=== PATIENT | female | born 1955 | race Caucasian/White ===

== ENCOUNTER 2022-09-29 15:13 | Emergency (ER) | payer MEDICARE, BC, SELFPAY ==
[2022-09-29] VITALS (10 sets, daily range): BP systolic 136–167; BP diastolic 89–98; PULSE 69–79; RESP 14–22; TEMP 36.5; O2SAT 92–95; BMI 36.5
--- NOTE | 2022-09-29 15:20 | DI.RAD.S_ITS ---
PROCEDURE: XR CHEST 1V INDICATIONS: chest pain TECHNIQUE: One view of the chest was acquired. COMPARISON: None. FINDINGS: Surgical changes and devices: None. Lungs and pleura: Lungs are clear. No pleural effusions or pneumothorax. Mediastinum: Mediastinal contours appear normal. Heart size is normal. Bones and chest wall: No suspicious bony lesions. Overlying soft tissues appear unremarkable. IMPRESSION: No acute cardiopulmonary disease process. Dictated by: Nicole Edmondson MD, PhD on 09/29/2022 at 15:52 Approved by: Nicole Edmondson MD, PhD on 09/29/2022 at 15:52
[2022-09-29 15:51] LABS: Add Manual Diff / Slide Review NO; Basophils Absolute Auto 100 /uL (0-100); Basophils Percent Auto 1.5 % (0-2); Eosinophils Absolute Auto 200 /uL (0-450); Eosinophils Percent Auto 3.4 % (2-4); Hematocrit 42.2 % (36-46); Hemoglobin 14.7 g/dL (12.0-16.0); Lymphocytes Absolute Auto 1800 /uL (1100-4500); Lymphocytes Percent Auto 27.7 % (25-40); Mean Corpuscular HGB Conc 34.7 % (30-36); Mean Corpuscular Hemoglobin 30.5 PG (26-34); Mean Corpuscular Volume 87.7 fL (80-100); Monocytes Absolute Auto 800 /uL (0-900); Monocytes Percent Auto 11.6 % (3-14); Neutrophils Absolute Auto 3700 /uL (1500-7000); Neutrophils Percent Auto 55.8 % (50-75); Platelet Count 199 X10^3/uL (150-400); Red Blood Cell Count 4.82 X10^6/uL (4.0-5.2); Red Cell Distribution Width 13.8 % (11.6-14.8); White Blood Cell Count 6.6 X10^3/uL (4.5-11.0)
--- NOTE | 2022-09-29 15:59 | ED_ITS ---
HPI - Dizziness General Chief Complaint: Dizziness Stated Complaint: lightheaded, dizzy,Lside of face tingly t-2 Time Seen by Provider: 09/29/22 15:29 Source: patient Mode of arrival: Ambulatory History of Present Illness HPI Narrative: Patient healthy 67-year-old female presents today with dizziness and lightheadedness. She reports that for last 2 days she is had some light tingling in the left side or face. No significant pain. No numbness tingling weakness or facial droop. No speech difficulty. She says today while driving she extremely dizzy lightheaded felt like she might pass out and needed to tie puller. Episode lasted for about 1 minute. She is able to drive herself home the drive herself to the emergency department. He says for last couple days she is been fatigued not feeling well. Denies any fevers cough nausea vomiting numbness tingling weakness or any other symptoms. There is no rash on left side of her face. No history of CVA or TIA. She reports that she does have some neck issue she had a fusion at some point. Related Data Home Medications Medication Instructions Recorded Confirmed No Known Home Medications 04/20/20 04/20/20 Allergies Allergy/AdvReac Type Severity Reaction Status Date / Time iodine Allergy Verified 09/29/22 15:18 Sulfa (Sulfonamide AdvReac Verified 09/29/22 15:18 Antibiotics) Review of Systems Review of Systems ROS Unobtainable: All systems reviewed & are unremarkable except as noted in HPI and below Patient History Medical History No active medical problems Social History Smoking Status: Never smoker Smoking Status: Never smoker Exam Initial Vital Signs Initial Vital Signs: Vital Signs Temperature 97.7 F 09/29/22 15:18 Pulse Rate 74 09/29/22 15:18 Respiratory Rate 15 09/29/22 15:18 Blood Pressure 157/98 H 09/29/22 15:18 Pulse Oximetry 93 09/29/22 15:18 Oxygen Delivery Method Room Air 09/29/22 15:18 GENERAL: Alert pleasant 67-year-old female and in no acute distress. HEENT: Head atraumatic,EOMI, pupils reactive, face symmetric, moist mucous membranes CARDIOVASCULAR: Regular rate and rhythm without murmurs, rubs or gallops. RESPIRATORY: Breath sounds equal bilaterally, no wheezes rales or rhonchi. ABDOMEN: Soft, nontender. Normoactive bowel sounds all 4 quadrants. No guarding or rebound. EXTREMITIES: Normal range of motion, no clubbing or edema. Neurovascularly intact NEUROLOGICAL: Alert and oriented x4.Normal gait and speech. Cranial nerves II through XII grossly intact. Good [id number], good [id number], strength equal bilaterally, no dysarthria or aphasia, sensation in tact to soft touch bilaterally, no visual changes, no facial droop SKIN: Warm, dry, no laceration, no petechiae, no rashes or lesions. Scores NIH Stroke Scale Level of Conciousness: Alert, keenly responsive Ask month/age: Answers both questions correctly. Open/close eyes, close hand: Performs both tasks correctly Best gaze horizontal: Normal Visual carter: No visual loss Facial palsy: Normal symetrical movement Left arm drift: No drift for full 10 sec Right arm drift: No drift for full 10 sec Left leg drift: No drift for full 5 sec Right leg drift: No drift for full 5 sec Limb ataxia: Absent Sensory on face/arms/legs: Normal, no sensory loss Best language: No aphasia, normal Dysarthria: Normal Extinction or inattention: No abnormality Total NIH Stroke scale score: 0 Course Orders Ordered: ED Orders 09/29/22 15:20 XR chest 1V Stat EKG-12 Lead Stat 09/29/22 15:40 Complete Blood Count AUTO DIFF Stat Comprehensive Metabolic Panel Stat Lipase Stat Magnesium Stat PTT Partial Thromboplastin Kee Stat Prothrombin Time INR Stat Troponin & CK Cardiac Panel Stat 09/29/22 16:00 CT angio head and neck Stat 09/29/22 17:10 Covid-19 + FLU A/B + RSV - PCR Stat Discontinued Medications Sodium Chloride (Normal Saline 0.9%) 1,000 mls @ 1,000 mls/hr IV BOLUS ONE Stop: 09/29/22 16:59 Last Infusion: 09/29/22 17:29 Dose: 0 mls/hr Documented By: Admin: 09/29/22 16:06 Dose: 1,000 mls/hr Documented By: WANDY Methylprednisolone (Methylprednisolone 125 Mg/2 Ml Vial) 125 mg IV NOW ONE Stop: 09/29/22 16:17 Last Admin: 09/29/22 16:38 Dose: 125 mg Documented By: WANDY Vital Signs Vital signs: Vital Signs - 8 hr 09/29/22 15:18 09/29/22 15:32 09/29/22 15:33 Temperature 97.7 F Pulse Rate 74 76 79 Respiratory Rate 15 14 Blood Pressure 157/98 H Pulse Oximetry 93 94 95 Oxygen Delivery Method Room Air 09/29/22 15:33 09/29/22 16:00 09/29/22 16:00 Temperature Pulse Rate 70 Respiratory Rate 22 Blood Pressure 167/92 H 136/90 Pulse Oximetry 95 Oxygen Delivery Method 09/29/22 16:15 09/29/22 16:15 09/29/22 16:30 Temperature Pulse Rate 69 Respiratory Rate 20 Blood Pressure 146/93 H 141/89 H Pulse Oximetry 93 Oxygen Delivery Method 09/29/22 16:30 09/29/22 17:00 09/29/22 17:30 Temperature Pulse Rate 70 75 72 Respiratory Rate 22 15 14 Blood Pressure Pulse Oximetry 94 94 94 Oxygen Delivery Method 09/29/22 18:00 09/29/22 18:54 Temperature Pulse Rate 74 72 Respiratory Rate 16 15 Blood Pressure 159/95 H Pulse Oximetry 92 93 Oxygen Delivery Method Room Air MDM - Dizziness Lab Data 09/29/22 15:40 09/29/22 15:40 Labs: Lab Results 09/29/22 09/29/22 09/29/22 Range/Units 15:40 15:40 15:40 WBC 6.6 (4.5-11.0) X10^3/uL RBC 4.82 (4.0-5.2) X10^6/uL Hgb 14.7 (12.0-16.0) g/dL Hct 42.2 (36-46) % MCV 87.7 (80-100) fL MCH 30.5 (26-34) PG MCHC 34.7 (30-36) % RDW 13.8 (11.6-14.8) % Plt Count 199 (150-400) X10^3/uL Neut % (Auto) 55.8 (50-75) % Lymph % (Auto) 27.7 (25-40) % [place] % (Auto) 11.6 (3-14) % Eos % (Auto) 3.4 (2-4) % Baso % (Auto) 1.5 (0-2) % Neut # (Auto) 3700 (0447-8200) /uL Lymph # (Auto) 1800 (2944-7858) /uL [place] # (Auto) 800 (0-900) /uL Eos # (Auto) 200 (0-450) /uL Baso # (Auto) 100 (0-100) /uL PT 11.5 (10.1-12.7) SECONDS INR 1.0 (0.9-1.3) APTT 32 (26-36) SECONDS Sodium 141 (137-145) mmol/L Potassium 3.5 (3.4-5.1) mmol/L Chloride 105 (98-107) mmol/L Carbon Dioxide 30 (22-32) mmol/L BUN 18 H (7-17) mg/dL Creatinine 0.56 (0.52-1.04) mg/dL Estimated GFR > 60 (>60) mL/min BUN/Creatinine Ratio 32.1 H (6-22) Glucose 119 H (80-110) mg/dL Calcium 9.0 (8.4-10.2) mg/dL Magnesium 2.4 H (1.6-2.3) mg/dL Total Bilirubin 0.6 (0.2-1.3) mg/dL AST 48 H (14-36) IU/L ALT 44 H (<35) IU/L Alkaline Phosphatase 72 (38-126) U/L Total Creatine Kinase 100 (30-135) U/L CK-MB (CK-2) TNP CK-MB (CK-2) Rel Index TNP Troponin I < 0.012 (0.01-0.034) ng/mL Total Protein 7.6 (6.3-8.2) g/dL Albumin 4.5 (3.5-5.0) g/dL Globulin 3.1 (1.7-4.1) g/dL Albumin/Globulin Ratio 1.5 (1.0-2.8) Lipase 172 (23-300) U/L SARS-CoV-2 (PCR) (Negative) Influenza A (RT-PCR) (NEGATIVE) Influenza B (RT-PCR) (NEGATIVE) RSV (PCR) (Negative) 09/29/22 Range/Units 17:10 WBC (4.5-11.0) X10^3/uL RBC (4.0-5.2) X10^6/uL Hgb (12.0-16.0) g/dL Hct (36-46) % MCV (80-100) fL MCH (26-34) PG MCHC (30-36) % RDW (11.6-14.8) % Plt Count (150-400) X10^3/uL Neut % (Auto) (50-75) % Lymph % (Auto) (25-40) % [place] % (Auto) (3-14) % Eos % (Auto) (2-4) % Baso % (Auto) (0-2) % Neut # (Auto) (0372-9034) /uL Lymph # (Auto) (3190-7954) /uL [place] # (Auto) (0-900) /uL Eos # (Auto) (0-450) /uL Baso # (Auto) (0-100) /uL PT (10.1-12.7) SECONDS INR (0.9-1.3) APTT (26-36) SECONDS Sodium (137-145) mmol/L Potassium (3.4-5.1) mmol/L Chloride (98-107) mmol/L Carbon Dioxide (22-32) mmol/L BUN (7-17) mg/dL Creatinine (0.52-1.04) mg/dL Estimated GFR (>60) mL/min BUN/Creatinine Ratio (6-22) Glucose (80-110) mg/dL Calcium (8.4-10.2) mg/dL Magnesium (1.6-2.3) mg/dL Total Bilirubin (0.2-1.3) mg/dL AST (14-36) IU/L ALT (<35) IU/L Alkaline Phosphatase (38-126) U/L Total Creatine Kinase (30-135) U/L CK-MB (CK-2) CK-MB (CK-2) Rel Index Troponin I (0.01-0.034) ng/mL Total Protein (6.3-8.2) g/dL Albumin (3.5-5.0) g/dL Globulin (1.7-4.1) g/dL Albumin/Globulin Ratio (1.0-2.8) Lipase (23-300) U/L SARS-CoV-2 (PCR) Negative (Negative) Influenza A (RT-PCR) Flu a negative (NEGATIVE) Influenza B (RT-PCR) Flu b negative (NEGATIVE) RSV (PCR) Negative (Negative) Urine Dip Bedside Urine Glucose Negative Bedside Urine Bilirubin - Negative Bedside Urine Ketone - Negative Urine Specific [place] 1.000 Bedside Urine Occult Blood - Negative Bedside Urine pH 6.0 Bedside Urine Protein - Negative Bedside Urine Urobilinogen - Negative Bedside Urine Nitrite - Negative Bedside Urine Leukocytes - Negative Esterase Imaging Data CTA - brain/neck: Radiologist's Impression: PROCEDURE:? CT ANGIO HEAD AND NECK ? INDICATIONS:? dizzy ? TECHNIQUE:? Pre-contrast 4.5 mm thick sections acquired from the foramen magnum to the vertex.? After the administration of intravenous contrast, 1 mm thick sections acquired from the aortic arch through the [place].? Post-contrast 4.5 mm thick sections then re- acquired from the foramen magnum to the vertex.? 3-dimensional bzmczqt-pwbxsorft-yfpauahxvw (MIP) and/or volume rendering reformats were acquired of the central intracranial vasculature and neck separately. For radiation dose reduction, the following was used:? automated exposure control, adjustment of mA and/or kV according to patient size.? ? COMPARISON:? None. ? FINDINGS:? Image quality:? Excellent.? ? BRAIN:? CSF spaces:? Ventricles are normal in size and shape.? Basal cisterns are paten t.? No extra-axial fluid collections.? ? Brain:? No midline shift.? No acute intracranial hemorrhage or mass effect.? Scattered hypodensities are seen in the subcortical and periventricular white matter. ? Skull and face:? Calvarium and facial bones appear intact, without suspicious lesions.? Orbits appear normal.? ? Sinuses:? Sinuses and mastoids are clear.? ? HEAD CT ANGIOGRAPHY:? Anterior circulation:? Intracranial internal carotid arteries are normal in size and flow.? The flow within the paired anterior cerebral arteries is normal and symmetric.? The flow within the middle cerebral arteries is normal and symmetric.? Right A1 segment is hypoplastic.? The anterior communicating artery is seen.? No aneurysms are seen.? ? Posterior circulation:? Visualized portions of the vertebral arteries demonstrate normal caliber, and join to form a normal appearing basilar artery.? type origin of the right [employer] FILTERER with a hypoplastic P1 segment and a large right posterior communicating artery. ?Flow within the posterior cerebral arteries is normal and symmetric.? No aneurysms are seen.? ? NECK CT ANGIOGRAPHY:? Carotid system:? The great vessels demonstrate a conventional anatomy as they arise from the aortic arch.? The origins of the common carotid arteries appear patent.? The common carotid arteries demonstrate normal caliber and courses.? The bifurcation regions are both widely patent.? The internal carotid arteries demonstrate normal calibers and courses.? ? Posterior circulation:? The origins of the vertebral arteries both appear widely patent, although streak artifact and motion partially obscure the left vertebral artery origin which appears to arise directly from the aortic arch.? The more superior extracranial portions of both vertebral arteries also demonstrate normal courses and calibers.? They join to form a normal appearing basilar artery.? ? Soft tissues:? Visualized neck soft tissues demonstrate no suspicious abnormalities.? ? Bones:? No suspicious bony lesions.? Degenerative changes are seen in the cervical spine. ? IMPRESSION:? 1. No acute intracranial abnormality. 2. No significant arterial stenosis or large vessel occlusion within the head or neck. ? Any quantitative measurements of stenosis were performed using NASCET criteria.? Approved by: Siva Danielle M.D. on 09/29/2022 at 17:14? ECG Data Interpretation: Normal sinus rhythm rate 73 OK interval 164 QRS [address] changes PVC noted no priors to compare MDM Narrative Medical decision making narrative: Patient is a 67-year-old female without significant past medical history presenting today an episode of dizziness. She has had 2 days of left facial numbness but no facial droop difficulty speaking or other focal deficits. Today while driving she had about a 1 minute episode of dizziness where she almost felt like she might pass out. CT angio does not show any large vessel occlusion blood work is overall reassuring without leukocytosis anemia ROCHELLE electrolyte abnormality. She is no evidence of infection viral panel is negative and urinalysis is negative. She ambulated to the restroom after a L of fluid without any further episodes. Overall feeling better. At this time no need for any further workup or evaluation. Discharge Plan Departure Patient Disposition: Home Clinical Impression: Dizziness Instructions: DI for Vertigo Activity Restrictions/Additional Instructions: *You have been diagnosed with dizziness *What to do: At this time workup is negative. Monitor your facial numbness hopefully this better for you I do not think it is related to a stroke. Her having worsening symptoms return to the ED *Continue to take medications as directed *Follow up with your primary care provider in 2-3 days or call [phone] *Return to ER if you should have increased dizziness palpitations passing out or any new, worsening or concerning symptoms Prescriptions: No Action No Known Home Medications Referrals: Dennis Duval MD [Primary Care Provider] - Stand Alone Forms: Patient Portal/API
--- NOTE | 2022-09-29 16:00 | DI.CT.S_ITS ---
PROCEDURE: CT ANGIO HEAD AND NECK INDICATIONS: dizzy TECHNIQUE: Pre-contrast 4.5 mm thick sections acquired from the foramen magnum to the vertex. After the administration of intravenous contrast, 1 mm thick sections acquired from the aortic arch through the [place]. Post-contrast 4.5 mm thick sections then re-acquired from the foramen magnum to the vertex. 3-dimensional fmfvaxc-ybutwqfpx-isfesowosb (MIP) and/or volume rendering reformats were acquired of the central intracranial vasculature and neck separately. For radiation dose reduction, the following was used: automated exposure control, adjustment of mA and/or kV according to patient size. COMPARISON: None. FINDINGS: Image quality: Excellent. BRAIN: CSF spaces: Ventricles are normal in size and shape. Basal cisterns are patent. No extra-axial fluid collections. Brain: No midline shift. No acute intracranial hemorrhage or mass effect. Scattered hypodensities are seen in the subcortical and periventricular white matter. Skull and face: Calvarium and facial bones appear intact, without suspicious lesions. Orbits appear normal. Sinuses: Sinuses and mastoids are clear. HEAD CT ANGIOGRAPHY: Anterior circulation: Intracranial internal carotid arteries are normal in size and flow. The flow within the paired anterior cerebral arteries is normal and symmetric. The flow within the middle cerebral arteries is normal and symmetric. Right A1 segment is hypoplastic. The anterior communicating artery is seen. No aneurysms are seen. Posterior circulation: Visualized portions of the vertebral arteries demonstrate normal caliber, and join to form a normal appearing basilar artery. type origin of the right [place] COLLEGE with a hypoplastic P1 segment and a large right posterior communicating artery. Flow within the posterior cerebral arteries is normal and symmetric. No aneurysms are seen. NECK CT ANGIOGRAPHY: Carotid system: The great vessels demonstrate a conventional anatomy as they arise from the aortic arch. The origins of the common carotid arteries appear patent. The common carotid arteries demonstrate normal caliber and courses. The bifurcation regions are both widely patent. The internal carotid arteries demonstrate normal calibers and courses. Posterior circulation: The origins of the vertebral arteries both appear widely patent, although streak artifact and motion partially obscure the left vertebral artery origin which appears to arise directly from the aortic arch. The more superior extracranial portions of both vertebral arteries also demonstrate normal courses and calibers. They join to form a normal appearing basilar artery. Soft tissues: Visualized neck soft tissues demonstrate no suspicious abnormalities. Bones: No suspicious bony lesions. Degenerative changes are seen in the cervical spine. IMPRESSION: 1. No acute intracranial abnormality. 2. No significant arterial stenosis or large vessel occlusion within the head or neck. Any quantitative measurements of stenosis were performed using NASCET criteria. Approved by: Siva Danielle M.D. on 09/29/2022 at 17:14
[2022-09-29 16:03] LABS: Prothrombin Time 11.5 SECONDS (10.1-12.7)
[2022-09-29 16:06] LABS: PTT Partial Thromboplastin Tim 32 SECONDS (26-36)
[2022-09-29] MEDS: SODIUM CHLORIDE 0.9% 1,000 ML 1000 ML IV (16:06)
[2022-09-29 16:07] LABS: Alanine Aminotransferase 44 IU/L (<35); Albumin 4.5 g/dL (3.5-5.0); Albumin Globulin Ratio 1.5 (1.0-2.8); Alkaline Phosphatase 72 U/L (38-126); Aspartate Aminotransferase 48 IU/L (14-36); BUN Creatinine Ratio 32.1 (6-22); Bilirubin Total 0.6 mg/dL (0.2-1.3); Blood Urea Nitrogen 18 mg/dL (7-17); Carbon Dioxide 30 mmol/L (22-32); Chloride 105 mmol/L (98-107); Creatine Kinase 100 U/L (30-135); Estimated Glomerular Filt Rate > 60 mL/min (>60); Globulin 3.1 g/dL (1.7-4.1); Glucose 119 mg/dL (80-110); HEMOLYSIS 23 (0-50); Lipase 172 U/L (23-300); Magnesium 2.4 mg/dL (1.6-2.3); Potassium 3.5 mmol/L (3.4-5.1); Sodium 141 mmol/L (137-145); Total Protein 7.6 g/dL (6.3-8.2)
[2022-09-29 16:19] LABS: Troponin I < 0.012 ng/mL (0.01-0.034)
[2022-09-29] MEDS: methylPREDNISolone 125 MG/2 ML VIAL IV (16:38)
[2022-09-29 17:57] LABS: Influenza A - CEPHEID Flu A NEGATIVE (NEGATIVE); Influenza B - CEPHEID Flu B NEGATIVE (NEGATIVE); Respiratory Syncytial Virus Negative (Negative)
[2022-09-29 18:10] LABS: COVID-19 CEPHEID 4-PLEX PCR Negative (Negative)
== END 2022-09-29 19:07 | disposition home or self-care (01) ==
PROVIDERS: Emergency Provider Emergency Medicine; PCP Family Medicine
DX: R42 Dizziness and giddiness (principal); R07.9 Chest pain, unspecified; Z20.822 Contact with and (suspected) exposure to COVID-19
CPT/HCPCS: 0241U; 36415; 70496; 70498; 71045; 80053; 81003; 82550; 83690; 83735; 84484; 85025; 85610; 85730; 93005; 96361; 96374; 99284; J2930; Q9967